=== PATIENT | female | born 1945 | race Caucasian/White ===

== ENCOUNTER 2020-04-11 09:23 | Outpatient (CLI) | payer MEDICARE, SELFPAY ==
--- NOTE | ~2020-04-11 | DEXA_ITS ---
Bone Density Report Name: Elizabeth Mclaughlin Age: 74 Sex: Female Ethnicity: White Date of : 1945 Indication: postmenopausal; hysterectomy; Referring Provider: Jethro Trinidad Study: Bone densitometry was performed. Exam Date: April 11, 2020 Accession number: [id number] Bone Density: Region BMD T-score Z-score Classification AP Spine (L1-L4) 0.814 -2.1 0.2 Osteopenia Femoral Neck (Left) 0.635 -1.9 0.1 Osteopenia Total Hip (Left) 0.773 -1.4 0.3 Osteopenia Total Hip Bilateral Avg 0.771 -1.4 0.3 Osteopenia Femoral Neck (Right) 0.648 -1.8 0.2 Osteopenia Total Hip (Right) 0.767 -1.4 0.3 Osteopenia World Health Organization criteria for BMD impression classify patients as: Normal (T-score at or above -1.0), Osteopenia (T-score between -1.0 and -2.5), or Osteoporosis (T-score at or below -2.5). 10-year Fracture Risk(1): Major Osteoporotic Fracture 12% Hip Fracture 2.8% Reported Risk Factors: [place] (), Neck BMD=0.635, BMI=24.5 (1) FRAX(R) Version 3.08. Fracture probability calculated for an untreated patient. Fracture probability may be lower if the patient has received treatment. Clinical Information Provided by Patient: Has used the following medications: Calcium Has the following medical conditions: Hysterectomy Patient maximum height was 62 Menopause Age: 39 Drinks caffeinated beverages Onset of menses at age 13 Number of children 3 Impression: The patient has low bone mass, based on the Total Spine T-score. The patient has an estimated ten-year risk of hip fracture of 2.8% and an estimated ten-year risk of major fracture of 12%, based on the WHO FRAX algorithm. Discussion: BONE DENSITY IS LOW AT ONE OR MORE SKELETAL SITES. This patient's lowest T-score is low at one or more skeletal sites. It meets the World Health Organization's (WHO) criteria for ?low bone mass? (T-score between -1.0 and -2.5). The patient's 10-year risk of fracture as calculated by FRAX is less than the threshold where pharmacological therapy is recommended by the National Osteoporosis Foundation (NOF). However, all treatment decisions require clinical judgment and consideration of individual patient factors, including patient preferences, comorbidities, previous drug use, risk factors not captured in the FRAX model (e.g., frailty, falls, vitamin D deficiency, increased bone turnover, interval significant decline in bone density) and possible under or overestimation of fracture risk by FRAX. The patient should follow a healthful lifestyle (good nutrition with adequate calcium and vitamin D, and appropriate weight-bearing exercise). Follow-Up: Consider repeating this study in 2 to 3 years to reassess this patient's status, or sooner if there is some new clinical indication. Reported by: [facility] on 04/11/2020 9:50
--- NOTE | ~2020-04-11 | MM_ITS ---
EXAMINATION: MM screening [facility] BI w ayaan HISTORY: Screening mammogram TECHNIQUE: Craniocaudal and mediolateral oblique 3-D tomosynthesis images were obtained and synthetic 2-D images were generated. CAD analysis was submitted and interpreted. COMPARISON: 03/12/2019, 03/05/2017, 02/17/2016 BREAST PARENCHYMAL COMPOSITION: There are scattered areas of fibroglandular density. FINDINGS: Stable bilateral breast masses are again noted, considered benign given the lack of interva l change. There is no evidence of suspicious mass, calcification, or architectural distortion to sugg est malignancy in either breast. There has been no suspicious interval change. IMPRESSION: 1. No mammographic evidence of malignancy. 2. Recommend routine screening mammography in one year. BI-RADS Category 2: Benign finding(s). Reviewed, dictated and finalized at location A.
== END 2020-04-11 09:24 | disposition home or self-care (01) ==
PROVIDERS: PCP Family Medicine; Visit Provider Physician Assistant
DX: Z12.31 Encounter for screening mammogram for malignant neoplasm of breast (principal); Z13.820 Encounter for screening for osteoporosis; Z78.0 Asymptomatic menopausal state; M85.88 Other specified disorders of bone density and structure, other site; M85.852 Other specified disorders of bone density and structure, left thigh; M85.851 Other specified disorders of bone density and structure, right thigh
CPT/HCPCS: 77063; 77067; 77080

== ENCOUNTER 2020-05-07 01:00 | Outpatient (CLI) | payer MEDICARE, SELFPAY ==
[2020-05-07 18:05] LABS: SARS-CoV-2 RNA PCR Negative
== END 2020-05-07 01:01 | disposition home or self-care (01) ==
LOC: ANHCOVIDDT 01:00
PROVIDERS: PCP Family Medicine; Visit Provider Internal Medicine Gastroenterology
DX: Z20.828 Contact with and (suspected) exposure to other viral communicable diseases (principal); Z01.812 Encounter for preprocedural laboratory examination
CPT/HCPCS: 87635; C9803; U0003

== ENCOUNTER 2020-05-10 00:04 | Day surgery (SDC) | payer MEDICARE, SELFPAY ==
[2020-05-04 11:58] VITALS: BMI 25.8
[2020-05-10 06:55] VITALS: BP 118/73; PULSE 85; RESP 16; TEMP 36.1; O2SAT 100; BMI 25.3
[2020-05-10] MEDS: LACTATED RINGERS 1,000 ML 150 ML IV CONT (07:08)
--- NOTE | 2020-05-10 07:48 | WPDANESEPPF ---
Anes - Initial Pre Proc Eval Procedure: Operation Date: 05/10/20 08:15 Proposed Procedures p Screening Colonoscopy - Alex Shultz MD Date/Time: 05/10/20 07:48 Surgeon: Alex Shultz MD Pre Op Diagnosis: Neoplasm Screening Patient Data Age: 74 Gender: F Height: 5 ft 1 in Weight: 60.9 kg Last Vital Signs Temp 97.0 F L 05/10/20 06:55 Pulse 85 05/10/20 06:55 Resp 16 05/10/20 06:55 BP 118/73 05/10/20 06:55 Pulse Ox 100 05/10/20 06:55 Allergies Allergy/AdvReac Type Severity Reaction Status Date / Time No Known Allergies Allergy Verified 05/10/20 06:53 Home Medications Medication Instructions Recorded Confirmed Type multivit,Ca,lnv-kunr-SW-guarana-caff 1 tablet PO DAILY 03/15/20 05/04/20 History 18 mg iron-400 mcg-180 mg tablet peg 3350-electrolytes 236 240 ml PO Q10M #4000 ml 03/22/20 Rx gram-22.74 gram-6.74 gram-5.86 gram solution calcium citrate 600 mg PO DAILY 05/04/20 05/04/20 History cholecalciferol (vitamin D3) 1,000 unit PO DAILY 05/04/20 05/04/20 History [Vitamin D3] mecobalamin (vitamin B12) 1,000 mcg PO DAILY 05/04/20 05/04/20 History psyllium husk [Metamucil] 1 g PO DAILY 05/04/20 05/04/20 History Patient hx anesthesia problems: none Family hx anesthesia problems: none PMFSH Past Medical History Medical History (Updated 05/10/20 @ 07:49 by Perez Simon MD) BMI 25.0-25.9,adult Breast cancer screening Bronchitis last episode 07/2019 Cervical spondylosis Colon cancer screening Screening for osteoporosis Torn tendon Surgical History Surgical History History of hysterectomy History of neck surgery Family History Family History Sibling Family history of lung cancer Mother Family history of dementia Social History Social History Smoking status: Never smoker Second hand tobacco smoke exposure: No Alcohol intake: current Drinks per week: 2 Alcohol use details: WINE Substance use: never Substance use type: does not use Living arrangements: other Additional living arrangements comments: Boyfriend. Gender identity (if verbalized by the patient): Female Spiritual care concerns: No Anes - Eval Final PreProcedure Day of Procedure 05/10/20 07:48 Patient weight: overweight Heart: regular rate and rhythm Lungs: clear to auscultation Airway: Mallampati scale class II Neurological: alert and oriented Last oral intake: >/= 8 hours ASA classification: II Emergent: no Anesthetic plan: proceed Anesthesia type and monitoring: general GIVS and standard monitoring Informed Consent: The patient's anesthetic plan and its attendant risks and benefits were discussed with the patient/family/POA. Questions were solicited and answers provided to the satisfaction of the patient/family/POA.
--- NOTE | 2020-05-10 08:07 | PM.HPGS ---
History of Present Illness History of Present Illness Consent: Risks, benefits, and alternatives have been discussed and questions answered. Patient agrees to proceed with procedure. Chief complaint: Neoplasm Screening Narrative: Elizabeth Mclaughlin is a 74 year old female here for first screening colonoscopy, denies active gi issues Review of Systems Constitutional: Constitutional: Denies headache(s) and Denies weakness Eyes: Eyes: Denies blurry vision ENT: Reports Normal hearing present, Denies headache(s) and Denies neck pain Cardiovascular: Cardiovascular: Denies chest pain and Denies dyspnea Respiratory: Respiratory: Denies dyspnea Gastrointestinal: Gastrointestinal: Reports no additional gastrointestinal complaints Genitourinary: Genitourinary: Denies dysuria Musculoskeletal: Musculoskeletal: Denies neck pain Integumentary/Breasts: Skin/Breast: Denies dry skin Neurologic: Reports Normal hearing present, Denies headache(s) and Denies weakness Psychiatric: Psychiatric: Denies anxiety Endocrine: Endocrine: Denies change in body appearance Hematologic/Lymphatic: Hematologic/Lymphatic: Denies easy bleeding Allergic/Immunologic: Allergic/Immunologic: Denies urticaria PMFSH Past Medical History Medical History (Updated 05/10/20 @ 07:49 by Perez Simon MD) BMI 25.0-25.9,adult Breast cancer screening Bronchitis last episode 07/2019 Cervical spondylosis Colon cancer screening Screening for osteoporosis Torn tendon Surgical History Surgical History History of hysterectomy History of neck surgery Family History Family History Sibling Family history of lung cancer Mother Family history of dementia Social History Social History Smoking status: Never smoker Second hand tobacco smoke exposure: No Alcohol intake: current Drinks per week: 2 Alcohol use details: WINE Substance use: never Substance use type: does not use Living arrangements: other Additional living arrangements comments: Boyfriend. Gender identity (if verbalized by the patient): Female Spiritual care concerns: No Meds Home Medications and Allergies Home Medications Medication Instructions Recorded Confirmed Type multivit,Ca,wwe-kbsz-PK-guarana-caff 1 tablet PO DAILY 03/15/20 05/04/20 History 18 mg iron-400 mcg-180 mg tablet peg 3350-electrolytes 236 240 ml PO Q10M #4000 ml 03/22/20 Rx gram-22.74 gram-6.74 gram-5.86 gram solution calcium citrate 600 mg PO DAILY 05/04/20 05/04/20 History cholecalciferol (vitamin D3) 1,000 unit PO DAILY 05/04/20 05/04/20 History [Vitamin D3] mecobalamin (vitamin B12) 1,000 mcg PO DAILY 05/04/20 05/04/20 History psyllium husk [Metamucil] 1 g PO DAILY 05/04/20 05/04/20 History Allergies Allergy/AdvReac Type Severity Reaction Status Date / Time No Known Allergies Allergy Verified 05/10/20 06:53 Vital Signs Vital Signs - 24 hr 05/10/20 06:55 Temperature 97.0 F L Pulse Rate 85 Respiratory Rate 16 Blood Pressure 118/73 Pulse Oximetry 100 Exam Const: General: comfortable and no acute distress HENMT: General nose exam: Normal nares present Eyes: General: appearance normal, both eyes and all related structures Neck: Neck: no JVD Resp: Auscultation: clear to auscultation bilaterally Cardio: Rate: regular rate Rhythm: regular rhythm GI: Inspection: non-distended GI Palp: Yes Soft to palpation Skin: General skin exam: normal color Neuro: General: gait normal Speech: normal speech Extrem: General: normal to inspection Psych: Mental Status: mental status grossly normal Assessment and Plan Assessment and plan (1) Colon cancer screening: Code(s): Z12.11 - Encounter for screening for malignant neoplasm of colon Status: Acute
[2020-05-10 08:27] VITALS: BP 109/50; PULSE 81; RESP 25; O2SAT 98
[2020-05-10 08:37] VITALS: BP 115/65; PULSE 72; RESP 19; O2SAT 100
[2020-05-10 08:47] VITALS: BP 132/74; PULSE 63; RESP 12; O2SAT 100
== END 2020-05-10 09:02 | disposition home or self-care (01) ==
PROVIDERS: PCP Family Medicine; Visit Provider Internal Medicine Gastroenterology
PROC: 0DJD8ZZ Inspection of Lower Intestinal Tract, Via Natural or Artificial Opening Endoscopic (ICD-10-PCS; CPT 45378; principal; 2020-05-10 08:15)
DX: Z12.11 Encounter for screening for malignant neoplasm of colon (principal); D12.2 Benign neoplasm of ascending colon; K64.8 Other hemorrhoids
CPT/HCPCS: 45380; 88305; J2704; J7120

== ENCOUNTER 2020-10-27 10:36 | Outpatient (CLI) | payer MEDICARE, SELFPAY ==
--- NOTE | ~2020-10-27 | XR_ITS ---
EXAMINATION: XR knee LT 3V DATE: 10/27/2020 10:59 INDICATION: Posterior left knee pain. TECHNIQUE: 3 views of left knee were obtained. COMPARISON: Left knee radiographs 11/26/2014 FINDINGS: Bone alignment is normal. No fracture. There is mild osteoarthritis of patellofemoral alexand[place] rtment characterized by tiny marginal osteophytes. No knee joint effusion. IMPRESSION: 1. Mild left knee osteoarthritis. Reviewed, dictated and finalized at location A.
== END 2020-10-27 10:37 | disposition home or self-care (01) ==
LOC: ANHIMG 10:39
PROVIDERS: PCP Internal Medicine; Visit Provider Nurse Practitioner
DX: M17.12 Unilateral primary osteoarthritis, left knee (principal)
CPT/HCPCS: 73562

== ENCOUNTER 2021-04-15 12:53 | Outpatient (CLI) | payer MEDICARE, SELFPAY ==
--- NOTE | ~2021-04-15 | MR_ITS ---
EXAMINATION: MR knee LT wo con DATE: 04/15/2021 14:32 INDICATION: Posterior left knee pain TECHNIQUE: Magnetic resonance imaging (MRI) of the left knee was performed without intravenous contra st. Sequences included coronal PD-weighted FSE, coronal PD-weighted FS FSE, sagittal T2-weighted FSE , sagittal PD-weighted FS FSE and axial PD weighted fat saturated FSE. COMPARISON: Left knee radiographs dated 03/31/2021 FINDINGS: There is mild motion artifact or blurring on the initial and repeated fat saturated axial, sagittal a nd coronal images. Medial compartment: Medial meniscus is normal. There is mild partial thickness chondral cartilage loss with scattered cho ndral fissuring along the medial tibial plateau with tiny focus of subarticular edema at the anterior medial tibial plateau. There is additional mild partial-thickness cartilage loss and scattered chond ral surface irregularity along the weightbearing medial femoral condyle. Lateral compartment: Lateral meniscus is normal. Mild partial-thickness cartilage loss along the posterior weightbearing l ateral femoral condyle. Patellofemoral compartment: Extensive deep chondral ulceration at the patella with regularity to the articular cortex and subarti cular edema at the inferior apical ridge and the superior apical ridge and immediately adjacent porti ons of the medial and lateral facets . Partial-thickness cartilage loss with smooth chondral surface along the inferior and lateral aspects of the lateral trochlea. Deep chondral fissuring with small fo cus of underlying subarticular edema at the inferior margin of the medial trochlea. . Ligaments and tendons: Anterior and posterior cruciate ligaments are normal. The medial collateral ligament and fibular lakes[place] ateral ligament complex are normal. The extensor mechanism is normal. The visualized medial and later al hamstring tendons as well as the iliotibial band are normal. Fluid: Physiologic amount of fluid in the joint space. No loose osteochondral bodies identified. There is a ganglion cyst measuring 3.6 x 1.9 x 1.7 cm extending inferomedially along the popliteus tendon. Osseous/other: Bone alignment is normal. No fracture or pathologic marrow replacing process. IMPRESSION: 1. Tricompartmental osteoarthritis, moderate severity with high-grade chondromalacia in the patellofe moral compartment and mild with low to moderate grade chondromalacia in the medial and lateral compar tments. 2. Moderate-sized ganglion cyst extending inferiorly along the popliteus muscle and tendon. Reviewed, dictated and finalized at location B. IMPRESSION: 1. Tricompartmental osteoarthritis, moderate severity with high-grade chondroma lacia in the patellofemoral compartment and mild with low to moderate grade cho ndromalacia in the medial and lateral compartments. 2. Moderate-sized ganglion cyst extending inferiorly along the popliteus muscle and tendon.
== END 2021-04-15 12:54 | disposition home or self-care (01) ==
LOC: ANHIMG 12:57
PROVIDERS: PCP Internal Medicine; Visit Provider Nurse Practitioner Family
DX: M17.12 Unilateral primary osteoarthritis, left knee (principal); M67.462 Ganglion, left knee
CPT/HCPCS: 73721

== ENCOUNTER 2021-05-04 09:39 | Outpatient (CLI) | payer MEDICARE, SELFPAY ==
[2021-05-04 09:48] LABS: Basophils Absolute Auto 0.1 K/mm3 (0.0-0.1); Basophils Percent Auto 0.9 % (0.2-1.2); Eosinophils Absolute Auto 0.5 K/mm3 (0-0.3); Eosinophils Percent Auto 5.8 % (0-4.4); Hematocrit 45.5 % (37.0-47.0); Hemoglobin 14.5 g/dL (12.0-15.0); Immature Granulocyte Absolute 0.03 K/mm3 (0.00-0.031); Immature Granulocyte Percent A 0.4 % (0-0.5); Lymphocytes Absolute Auto 2.56 K/mm3 (0.9-3.2); Lymphocytes Percent Auto 32.1 % (18.3-44.2); Mean Corpuscular HGB Conc 31.9 g/dl (32-36); Mean Corpuscular Hemoglobin 28.9 pg (26-34); Mean Corpuscular Volume 90.8 fl (80-100); Mean Platelet Volume 9.4 fl (7.4-10.4); Monocytes Absolute Auto 0.7 K/mm3 (0.1-0.6); Monocytes Percent Auto 8.5 % (2.6-8.5); Neutrophils Absolute Auto 4.2 K/mm3 (1.3-6.7); Neutrophils Percent Auto 52.3 % (45.5-73.1); Platelet Count Result 312 k/mm3 (150-375); Red Blood Count 5.01 M/mm3 (4.2-5.4); Red Cell Distribution Width 13.3 % (11.5-14.5)
[2021-05-04 10:00] LABS: Alanine Aminotransferase 19 U/L (4-35); Albumin Level 4.3 g/dL (3.5-5.1); Alkaline Phosphatase 82 U/L (38-126); Anion Gap 6 mmol/L (8-16); Aspartate Amino Transferase 30 U/L (14-36); Bilirubin,Total 0.6 mg/dL (0.2-1.3); Blood Urea Nitrogen 20 mg/dL (7-17); Calcium 9.4 mg/dL (8.4-10.2); Carbon Dioxide 28 mmol/L (22-30); Chloride 105 mmol/L (98-107); Estimated Glomerular Filt Rate 49; Glucose 105 mg/dL (65-110); Sodium 139 mmol/L (137-145)
[2021-05-04 10:47] LABS: Vitamin D 25 Hydroxy 42.7 ng/mL
== END 2021-05-04 09:40 | disposition home or self-care (01) ==
PROVIDERS: Nurse Practitioner; PCP Internal Medicine; Visit Provider Internal Medicine
DX: Z13.228 Encounter for screening for other metabolic disorders (principal); Z13.220 Encounter for screening for lipoid disorders; E55.9 Vitamin D deficiency, unspecified
CPT/HCPCS: 36415; 80053; 82306; 85025

== ENCOUNTER 2021-06-13 10:49 | Outpatient (CLI) | payer MEDICARE, SELFPAY ==
--- NOTE | ~2021-06-13 | MM_ITS ---
EXAMINATION: MM screening [facility] BI w ayaan HISTORY: Screening mammogram TECHNIQUE: Craniocaudal and mediolateral oblique 3-D tomosynthesis images were obtained and synthetic 2-D images were generated. CAD analysis was submitted and interpreted. COMPARISON: 04/03/2020, 03/12/2019, 03/05/2017 bilateral screening mammogram examinations BREAST PARENCHYMAL COMPOSITION: There are scattered areas of fibroglandular density........ FINDINGS: Occasional benign calcifications. There is no evidence of suspicious mass, calcification, o r architectural distortion to suggest malignancy in either breast. There has been no suspicious inter darío change. IMPRESSION: 1. No mammographic evidence of malignancy. 2. Recommend routine screening mammography in one year. BI-RADS Category 2: Benign finding(s). Reviewed, dictated and finalized at location A. ASE SPECIALIST
== END 2021-06-13 10:50 | disposition home or self-care (01) ==
PROVIDERS: PCP Internal Medicine; Visit Provider Nurse Practitioner
DX: Z12.31 Encounter for screening mammogram for malignant neoplasm of breast (principal)
CPT/HCPCS: 77063; 77067

== ENCOUNTER → 2021-12-22 02:31 | Outpatient (CLI) | payer MEDICARE, SELFPAY ==
[2021-12-22 16:50] LABS: SARS-CoV-2 RNA PCR Positive
== END ==
PROVIDERS: PCP Internal Medicine; Visit Provider Nurse Practitioner
DX: U07.1 COVID-19 (principal)
CPT/HCPCS: C9803; U0003; U0005

== ENCOUNTER 2022-03-18 09:34 | Outpatient (CLI) | payer MEDICARE, SELFPAY ==
--- NOTE | ~2022-03-18 | MR_ITS ---
EXAMINATION: MR cervical spine wo con DATE: 03/18/2022 10:46 INDICATION: Neck pain. TECHNIQUE: Magnetic resonance imaging (MRI) of the cervical spine was performed without intravenous c ontrast. Sequences included sagittal T2-weighted FSE, sagittal T2-weighted FS FSE, sagittal T1-weight ed FSE, axial MERGE, and axial T2-weighted FSE. COMPARISON: Cervical spine MRI 02/24/2019, radiographs 02/16/2019 FINDINGS: There is 2 mm anterolisthesis of C4 on C5 and 2 mm retrolisthesis of C5 on C6. There change s of anterior fusion procedure at C6-C7 with healed interbody bone graft. There is chronic mild anter ior wedging of C5 vertebral body. There is severely decreased disc height at C5-C6 with endplate ken deling. The spinal cord signal intensity is normal. The following disc levels are specifically discus sed: C2-C3: The disc does not extend beyond the endplate margin. There is no uncovertebral joint osteoarth ritis. There is severe right and mild left facet joint osteoarthritis. There is no neural foraminal s tenosis. There is no central canal stenosis. C3-C4: The disc does not extend beyond the endplate margin. There is no uncovertebral joint osteoarth ritis. There is mild right and severe left facet joint osteoarthritis. There is mild left neural fora paige stenosis. There is no central canal stenosis. C4-C5: The disc does not extend beyond the endplate margin. There is mild left uncovertebral joint os teoarthritis. There is mild right and severe left facet joint osteoarthritis. There is mild left neur al foraminal stenosis. There is mild central canal stenosis. C5-C6: The disc is bulging. There is severe bilateral uncovertebral joint osteoarthritis. There is se nakul bilateral facet joint osteoarthritis. There is mild bilateral neural foraminal stenosis. There i s moderate central canal stenosis with ventral and dorsal indentation of the spinal cord. C6-C7: There is no uncovertebral joint hypertrophy. There is moderate right and mild left facet joint osteoarthritis. There is mild right neural foraminal stenosis. There is no central canal stenosis. C7-T1: The disc does not extend beyond the endplate margin. There is no uncovertebral joint osteoarth ritis. There is mild right and severe left facet joint osteoarthritis. There is mild left neural fora paige stenosis. There is no central canal stenosis. IMPRESSION: 1. Severe cervical spondylosis, stable from 02/24/2019. 2. Anterior fusion at C6-C7. Reviewed, dictated and finalized at location A.
== END 2022-03-18 09:35 | disposition home or self-care (01) ==
PROVIDERS: PCP Internal Medicine; Visit Provider Nurse Practitioner
DX: M47.22 Other spondylosis with radiculopathy, cervical region (principal); Z98.1 Arthrodesis status
CPT/HCPCS: 72141

== ENCOUNTER 2022-08-27 12:55 | Outpatient (CLI) | payer MEDICARE, SELFPAY ==
--- NOTE | 2022-08-27 13:24 | ECG_ITS ---
Measurements Intervals [place] Rate: 69 P: 28 NH: 172 QRS: 20 QRSD: 78 T: 51 QT: 386 QTc: 414 Interpretive Statements SINUS RHYTHM NO PREVIOUS ECG AVAILABLE FOR COMPARISON Electronically Signed On 08-28-2022 11:22:44 QUALITY PROJECT MANAGER by Azul Youssef M.D.
[2022-08-27 13:34] LABS: Hematocrit 43.4 % (37.0-47.0); Hemoglobin 14.1 g/dL (12.0-15.0); Mean Corpuscular HGB Conc 32.5 g/dl (32-36); Mean Corpuscular Hemoglobin 29.3 pg (26-34); Mean Platelet Volume 9.7 fl (7.4-10.4); Platelet Count Result 402 k/mm3 (150-375); Red Blood Count 4.82 M/mm3 (4.2-5.4); Red Cell Distribution Width 14.2 % (11.5-14.5); White Blood Count 12.1 K/mm3 (4.5-10.0)
[2022-08-27 13:35] LABS: Appearance Urine Cloudy (Clear); Bilirubin Urine Negative (Negative); Blood Urine Trace-intact (Negative); Color Urine Yellow (Yellow); Glucose Urine UA Negative (Negative); Ketones Urine Negative (Negative); Leukocyte Esterase Ur 1+ LEU/UL (NEGATIVE); Nitrate Urine Positive (Negative); Protein Urine Negative (Negative); Urobilinogen Urine 0.2 mg/dL (<2.0)
[2022-08-27 13:44] LABS: Bacteria Urine Trace /hpf; Mucus Urine Rare /lpf; Squamous Epithelial Cell Urine Occasional /hpf (Few); WBC Urine 16-20 /hpf (0-3)
[2022-08-27 13:46] LABS: Anion Gap 6 mmol/L (8-16); Blood Urea Nitrogen 23 mg/dL (7-17); Calcium 9.2 mg/dL (8.4-10.2); Carbon Dioxide 27 mmol/L (22-30); Chloride 105 mmol/L (98-107); Estimated Glomerular Filt Rate 48; Glucose 106 mg/dL (65-110); INR 1.1; Potassium 4.4 mmol/L (3.4-5.0); Prothrombin Time 13.5 Seconds (11.1-14.7); Sodium 138 mmol/L (137-145)
[2022-08-27 13:47] LABS: Partial Thromboplastin Time 31.7 SECONDS (22.3-36.8)
[2022-08-27 13:49] LABS: Add Urine Microscopic? YES
== END 2022-08-27 12:56 | disposition home or self-care (01) ==
LOC: ANHLAB 12:56
PROVIDERS: PCP Internal Medicine; Visit Provider Neurological Surgery
DX: Z01.818 Encounter for other preprocedural examination (principal); Z79.01 Long term (current) use of anticoagulants
CPT/HCPCS: 36415; 80048; 81001; 85027; 85610; 85730; 86850; 86900; 86901; 93005

== ENCOUNTER 2022-09-05 12:27 | Outpatient (CLI) | payer MEDICARE, SELFPAY | END 2022-09-05 12:28 | disposition home or self-care (01) | PROVIDERS: PCP Nurse Practitioner; Visit Provider Neurological Surgery | DX: M48.02 Spinal stenosis, cervical region (principal); Z01.818 Encounter for other preprocedural examination | CPT/HCPCS: 36415; 86850; 86900; 86901 ==

== ENCOUNTER 2022-09-11 15:56 | Inpatient (IN) | payer MEDICARE, SELFPAY ==
[2022-09-04 09:18] VITALS: BMI 25.0
--- NOTE | 2022-09-04 09:45 | PC.NURSE ---
Report to the Outpatient Waiting Room, entrance under the green pavilion located off [facility], at time __8:30AM on date __09/11/22 . Planned Procedure Time: __10:30AM . Time changes happen often and if your time is changed the preop area will call you the afternoon before. - You and your visitor will be asked to self-screen and do not enter if you have any COVID symptoms. - Only one visitor is requested with a max of two and NO children visitors are allowed at this time. - The patient visitor may be requested to leave or wait in car when not with patient due to distancing restrictions. - A mask is optional within the hospital at this time. Patients may have clear liquids (water, carbonated beverages, clear teas, apple juice) until 3 hours prior to surgery with a maximum of 20 ounces. - No food from midnight until time of surgery Take the following medications with a SIP of water the morning of surgery: ____NONE DO NOT STOP ANY OF YOUR OTHER PRESCRIPTION MEDICATIONS PRIOR TO SURGERY ?EXCEPT THE FOLLOWING Medications to discontinue per physician ____HOLD ALL VITAMINS/SUPPLEMENTS 7 DAYS PRE-OP PER DR BLAKE(PER PATIENT) Date to take last dose___09/04/22 Please no make-up, nail sinhala, hairspray, perfume, deodorant, or body powder the day of surgery. No jewelry (including any body piercings) or valuables the day of surgery, leave them at home. Please take a shower or bath the night before, or the morning of, surgery with an antibacterial soap. Wear comfortable, loose fitting clothing. Children are encouraged to wear pajamas. - Jewelry must be removed prior to entering the operating room. Rings and piercings that are not removed may be cut off. - The hospital will not accept responsibility for valuables. - Please leave all valuables, including medications, at home the day of surgery. If you are going home after surgery, a licensed p d driver must drive you home. - NO public transportation without another adult if you receive anesthesia. - We recommend that an adult stay with you for 24 hours following discharge. - We also recommend that you do not drive, make important decision, drink alcoholic beverages, or take any drugs that were not prescribed by your health care provider for at least 24 hours after your discharge time. Follow any additional instructions given to you from your surgeon. If you or anyone in your household have experienced Covid symptoms in the past week, please notify your surgeon or the nurse liaison at the phone number below for possible testing. Telephone instructions given to __PATIENT_and asked if any additional questions and then verbalized understanding. Patient advised to call surgeon office or pre surgery nurse liaison [phone] if any additional questions.
--- NOTE | 2022-09-10 09:17 | WPDANESEPPF ---
Anes - Initial Pre Proc Eval Procedure: Operation Date: 09/11/22 07:30 Proposed Procedures p Posterior Cervical Decompression C3-4, C6-7 with Fusion - Deepika Butt MD Date/Time: 09/10/22 09:17 Surgeon: Deepika Butt MD Pre Op Diagnosis: cervical stenosis Patient Data Age: 76 Gender: F Height: 1.57 m Weight: 62 kg Allergies Allergy/AdvReac Type Severity Reaction Status Date / Time No Known Allergies Allergy Verified 09/11/22 07:22 Home Medications Medication Instructions Recorded Confirmed Type multivit,Ca,sna-cqnm-HL-guarana-caff 1 tablet PO DAILY 03/15/20 09/11/22 History 18 mg iron-400 mcg-180 mg tablet (One-A-Day Women's Active) cholecalciferol (vitamin D3) 25 1,000 unit PO DAILY 05/04/20 09/11/22 History mcg (1,000 unit) tablet (Vitamin D3) ferrous sulfate 325 mg (65 mg 325 mg PO DAILY 08/08/22 09/11/22 History iron) tablet acetaminophen 500 mg tablet 500 mg PO Q6H PRN Pain 09/04/22 09/04/22 History calcium carbonate 600 mg calcium 600 mg PO DAILY 09/04/22 09/11/22 History (1,500 mg) tablet Patient hx anesthesia problems: none Family hx anesthesia problems: none Results Review: All pre-operative results and documents have been reviewed as part of the pre-operative evaluation. [facility] Past Medical History Medical History (Updated 08/27/22 @ 12:54 by Nandini Viramontes MA) BMI 25.0-25.9,adult Breast cancer screening Bronchitis last episode 07/2019 Cervical radiculopathy Cervical spondylosis CKD (chronic kidney disease) Colon cancer screening Ganglion cyst Lateral meniscus tear Left knee DJD Light headedness Screening for osteoporosis SOB (shortness of breath) Torn tendon Urinary frequency Weight gain Surgical History Surgical History History of foot surgery History of hysterectomy History of neck surgery Family History Family History Sibling Family history of lung cancer Thyroid disorder Mother Family history of dementia Heart disease Father Cerebrovascular accident Thyroid disorder Son Diabetes mellitus Depression Daughter Diabetes mellitus Heart disease Renal failure Dialysis patient Social History Social History (Updated 08/08/22 @ 09:49 by Monique Sánchez [facility]) Social History: caffeine-soda, 3 cups daily Smoking status: Never smoker Second hand tobacco smoke exposure: No Alcohol intake: current Drinks per week: 2 Alcohol use details: WINE Substance use: never Substance use type: does not use Lack of Transportation: No Lack of Food: Never True Current Housing: I Have Housing Concerned About Future Housing: No Difficulty Paying Gas/Electric Bills: No Difficulty Paying for Meds: No Currently Unemployed: No Education: High School Diploma/GED Difficulty w/ Childcare or Family Care: No Living arrangements: with family Additional living arrangements comments: S.O. Occupation/Education: retired Gender identity (if verbalized by the patient): Female Sexual Orientation (if Verbalized by the Patient): Straight or Heterosexual Spiritual care concerns: No Anes - Eval Final PreProcedure Day of Procedure 09/10/22 09:17 Patient weight: normal Heart: regular rate and rhythm Lungs: clear to auscultation Airway: Mallampati scale class III Neurological: alert and oriented Last oral intake: >/= 8 hours ASA classification: III Emergent: no Anesthetic plan: proceed Anesthesia type and monitoring: general ETT and standard monitoring Results Review: All pre-operative results and documents have been reviewed as part of the pre-operative evaluation. Informed Consent: The patient's anesthetic plan and its attendant risks and benefits were discussed with the patient/family/POA. Questions were solicited and answers provided to the satisfaction of the patient/family/POA
[2022-09-11] VITALS (15 sets, daily range): BP systolic 101–166; BP diastolic 48–94; PULSE 66–84; RESP 14–20; TEMP 36.1–36.7; O2SAT 85–100
--- NOTE | ~2022-09-11 | XR_ITS ---
EXAMINATION: XR fluoroscopy no charge DATE: 09/11/2022 12:30 APPRAISAL TECHNICIAN INDICATION: CERVICAL FUSION . TECHNIQUE: 5 fluoroscopic images of the lateral cervical spine were obtained during cervical fusion p erformed by the surgeon. I was not present in the operating room. Fluoroscopy exposure time was 10.7 seconds. Air Kerma 0.4626 mGy. DAP 0.0092 mGym2. COMPARISON: MR cervical spine 03/18/2022. FINDINGS: A surgical instrument localizes the space between the second and third spinous processes, followed by the spinous process of C7. Soft tissue retractors overlying the posterior soft tissues in the remain ing images. Posterior fusion hardware placement spanning C3-C6. IMPRESSION: Fluoroscopic documentation of cervical fusion. Please refer to the operative note for complete proced ural details . Reviewed, dictated and finalized at location K. AISAL TECHNICIAN IMPRESSION: Fluoroscopic documentation of cervical fusion. Please refer to the operative no te for complete procedural details .
[2022-09-11 07:49] LABS: Appearance Urine Clear (Clear); Bilirubin Urine Negative (Negative); Blood Urine Trace-lysed (Negative); Color Urine Yellow (Yellow); Glucose Urine UA Negative (Negative); Ketones Urine Negative (Negative); Leukocyte Esterase Ur Trace LEU/UL (Negative); Nitrate Urine Positive (Negative); Protein Urine Negative (Negative); Urobilinogen Urine 0.2 mg/dL (<2.0); pH Urine 6.5 (5.0-9.0)
[2022-09-11 07:53] LABS: Bacteria Urine Trace /hpf; Mucus Urine Rare /lpf; Squamous Epithelial Cell Urine Rare /hpf (Few); WBC Urine 0-3 /hpf
[2022-09-11 07:56] LABS: Add Urine Microscopic? YES
--- NOTE | 2022-09-11 09:23 | PM.IMHP ---
H&P: HPI History of Present Illness Date/Time: 09/11/22 09:23 Chief Complaint: Elizabeth Mclaughlin is a very pleasant 76 year old female who originally presented at the request of her primary care physician and was seen in April 2022. She notes a history of a prior anterior cervical spine operation 10-15 years ago.? She is not sure as to who performed the operation.? Based upon imaging it appears that she had a non-instrumented ACDF at C6-7.? Elizabeth has had symptoms for 4-5 years.? Approximately 3-4 years ago she describes pain primarily in the neck with occasional radiation to the upper extremities.? She saw a surgeon at that time who did not recommend surgical intervention.? I do not have records from imaging at that time.? Elizabeth reports that she participated in physical therapy and had an injection.? She thinks that it was with IPC.?? She states that she had 1-2 years of relief of her symptoms after the injection.? ? At the time of our initial visit, she had not recently seen pain management.? She had not recently participated in physical therapy. At our initial visit, Elizabeth noted that since January of 2022 she? had pain in both her neck and her upper extremities.? She described pain in the region of the biceps bilaterally that radiated to the forearms and hand.? She denied sensory change.? She denied focal motor weakness.? She did describe, however, pain with movement of her upper extremities.? She denied lower extremity symptoms.? She denied difficulties with balance or dexterity.? She denies bowel or bladder symptoms.? She has undergone MR imaging of the cervical spine performed at [facility] on March 18, 2022.? This does show changes from a prior noninstrumented anterior cervical fusion at C6-7.? There are multilevel spondylotic changes.? At the C5-6 level there is a slight retrolisthesis of C5 on C6.? There is a disc bulge that contributes to moderate central stenosis.? There is a fair amount of motion artifact on the sequence.? at the C4-5 level, there is also moderate central stenosis and moderate to severe neuroforaminal There is not suggestion of spinal cord signal change.? ? The radiology reports comments that there is not significant change in comparison with 2019 In June, the patient returned after having had injections, completed by Dr Sargent. She reported that she? obtained good relief of her axial neck pain, however remained with her pain to her BUE's.? She stated that she was able to rotate her neck, with only experiencing a tight sensation to her left neck with right neck rotation.? She was attending sessions of physial therapy and felt that she had obtained good relief and improvement of her ROM.? Elizabeth underwent another injection with Dr Sargent on 07/04/2022,? that she states helps with her symptoms in her BUE's? for approximately 1 week, but the symptoms have returned.? She denies significant met neck pain but notes radiation of pain to her shoulders, biceps, and hands.? She is increasingly frustrated by this pain and is inclined to consider surgery. She continues to deny bowel or bladder incontinence, changes in her gait or problems with dexterity PMFSH Past Medical History Medical History (Updated 08/27/22 @ 12:54 by Nandini Viramontes MA) BMI 25.0-25.9,adult Breast cancer screening Bronchitis last episode 07/2019 Cervical radiculopathy Cervical spondylosis CKD (chronic kidney disease) Colon cancer screening Ganglion cyst Lateral meniscus tear Left knee DJD Light headedness Screening for osteoporosis SOB (shortness of breath) Torn tendon Urinary frequency Weight gain Surgical History Surgical History History of foot surgery History of hysterectomy History of neck surgery Family History Family History Sibling Family history of lung cancer Thyroid disorder Mother Family history of dementia Heart disease Father Cereb
--- NOTE | 2022-09-11 09:25 | WPDHPUPDATE1 ---
History and Physical Update Update Date/Time: 09/11/22 09:25 History and Physical has been reviewed, including an updated exam of the patient. There are NO changes in the patient's condition. Risks, benefits, and alternatives have been discussed and questions answered. Patient agrees to proceed with procedure. Plan is for posterior cervical decompression and fusion
[2022-09-11] MEDS: LACTATED RINGERS 1,000 ML 30 ML IV CONT ×2 (09:30→14:08)
[2022-09-11] MEDS: ceFAZolin 2 GM/D5W 50 ML 2 GM/50 ML BAG IVPB (11:44)
[2022-09-11] MEDS: LIDO 1%/EPINEPHRINE 1:100,000 20 ML VIAL 10 ML INFILTRATE (13:29)
[2022-09-11] MEDS: VANCOMYCIN HCL 1,000 MG VIAL 1000 MG TOPICAL (13:30)
--- NOTE | 2022-09-11 13:39 | W.PM.PROC2 ---
Procedure Note - Detailed Date of Procedure 09/11/22 Pre-op Diagnosis cervical stenosis Post-op Diagnosis Same Procedure Performed Posterior cervical decompression and fusion C3-4 through C6-7 Surgeon Deepika Butt MD Anesthesia General Indications Elizabeth Mclaughlin is a very pleasant 76-year-old mwybm-[id number]-whtzhpot female who? originally presented with neck and bilateral upper extremity symptoms in the setting of cervical stenosis adjacent to a prior non instrumented cervical fusion.? Elizabeth has participated in physical therapy and has had 2 epidural steroid injections with Dr. Sargent.? She initially had significant improvement in her neck pain as well as her upper extremity symptoms with epidural steroid injections.? At this visit, however, her pain has returned.? Nearly any activity with her upper extremities result in significant upper extremity pain.? She is increasingly frustrated by her symptoms.? On review of her MRI she does have at least moderate stenosis adjacent to her prior fusion at C4-5 and C5-6.? There is also dorsal ligamentous hypertrophy that extends from C4 through C7.? There is multilevel neuroforaminal narrowing.? All of these findings could certainly be contributing to the patient's symptoms. The patient I have had an extended discussion in the office regarding the options for management of her symptoms and radiographic findings.? We have discussed the option of continued physical therapy or repeated interject interventional measures including epidural steroid injection.? As the patient only saw approximately 1 week of relief with her most recent injection, we have discussed that the likely that the repeated attempts would offer lasting result leaf is small.? The patient is more inclined to consider surgery Finally, we have thus? discussed the option of surgery. In the absence of functional deficits, I have explained that my preference is to exhaust non surgical options prior to consideration of surgery. However, we have discussed that as she has been unable to obtain durable relief of symptoms with non surgical measures that it would be very reasonable to consider surgical intervention.? we have generally discussed both the anterior and posterior approaches to the cervical spine.? Given the patient's prior anterior operation as well as the finding of dorsal ligamentous hypertrophy, I have explained that I would tend to favor a posterior approach in this situation.? I have explained that surgery would entail a ? Posterior cervical decompression and instrumented posterolateral fusion from C3-4 through C6-7. I have explained the indications for surgery as well as the risks, including but not limited to bleeding, infection, CSF leak, numbness, weakness, paralysis, stroke, coma, even . We have discussed the risk of pseudarthrosis, hardware failure, adjacent level disease, and even the need for further surgery. We have discussed the fundamentals of the surgical procedure and the typical recovery from surgery. She indicates understanding and asks us to proceed Description of Procedure The patient was brought into the operating room where general anesthesia was induced without complications.? A neutral position was used due to cervical stenosis.? Appropriate monitoring and access was achieved.? SSEP and MEP monitoring was obtained. the patient was turned into a prone position on the operating table.? The head was secured in a Dorantes skull clamp.? All extremities were padded? The dorantes clamp was secured to the table with the patient in a position. The C3-4 level was confirmed and identified using fluoroscopy.? The incision was planned and the site was prepped and draped sterilely.? A time out was performed. A linear incision was made using a #10 blade scalpel.? Dissection was carried down to the spinous process and the paraspinal muscle was dissected off of the lamina of C3, C4, C5, C6 and C7 using electrocautery.? Self retaining retractors w
[2022-09-11] MEDS: fentaNYL CITRATE INJ (*CRX) 100 MCG/2 ML VIAL 25 MCG IV PUSH ×7 (14:43→15:44)
[2022-09-11] MEDS: HYDROcodone/acetaminophen (*CRX) 10-325 MG TABLET 1 TAB PO ×2 (16:23→20:35)
--- NOTE | 2022-09-11 16:26 | ADMGEN ---
This patient, Elizabeth Mclaughlin, was admitted to Medical Room 241-01. Patient/family oriented to hospital policies and general routines including ID bracelet, bed and alarms, visiting hours, pain management, procedures, bathroom and other care routines, personal items, smoking policy, room service/diet, and visiting hours. Information on how to activate the Rapid Response Team has been discussed. Patient/Family are encouraged to report perceived risks to care and to ask questions if they do not understand what they are told or what they should do.
[2022-09-11] MEDS: KCL 20MEQ/0.9% SOD CHL 1,000 ML 100 ML IV CONT (18:06)
[2022-09-11] MEDS: CYCLOBENZAPRINE HCL 10 MG TABLET PO (22:45)
[2022-09-12 02:45] VITALS: BP 148/72; PULSE 76; RESP 21; TEMP 36.2; O2SAT 100
[2022-09-12 06:00] VITALS: BP 146/61; PULSE 84; RESP 18; TEMP 36.3; O2SAT 97
[2022-09-12] MEDS: HYDROcodone/acetaminophen (*CRX) 10-325 MG TABLET 1 TAB PO ×3 (06:09→20:45)
[2022-09-12 09:06] VITALS: RESP 18; O2SAT 98
[2022-09-12] MEDS: DOCUSATE SODIUM 100 MG CAPSULE PO ×2 (09:06→20:45)
[2022-09-12 11:35] VITALS: BP 133/63; PULSE 86; RESP 16; TEMP 36.6; O2SAT 100
--- NOTE | 2022-09-12 12:40 | WPDNEUROSGPN ---
Progress Note: A&P Assessment and Plan (1) Cervical stenosis of spinal canal: Code(s): M48.02 - Spinal stenosis, cervical region Status: Acute Assessment and Plan: Doing well on POD #1 Continue PT/OT evaluation and treatment Hemovac to be pulled today Continue with monitoring of pain C-Collar to remain in place Possible discharge to home tomorrow Subjective Date/time seen: 09/12/22 12:00 Interval history: POD #1 Pt doing well, pain controlled with oral meds [id number]. C-Collar remains in place PT and OT working with patient No pain to KAY's Review of Systems Review of Systems: All systems reviewed & are unremarkable except as noted in HPI and below Exam Narrative: General Examination: GENERAL: The patient is well-developed and well-nourished, in no acute distress. Neurologic Exam: MENTAL STATUS: The patient was alert and oriented to person, place, and time. The patient demonstrates very good cognitive function. MOTOR EXAM: Upper extremities are 5/5 with normal muscle power bulk and tone. SENSATION: Light touch sensation was normal. CRANIAL NERVES: Pupils are equal, round. Face is symmetric. Hearing is intact bilaterally. Shoulder shrug is intact bilaterally Objective Data Vital Signs Vital Signs: Vital Signs - 24 hr 09/11/22 14:08 09/11/22 14:20 09/11/22 14:35 Temperature 36.4 C Pulse Rate 74 68 69 Respiratory Rate 17 20 20 Blood Pressure 118/51 L 101/48 L 118/57 L Pulse Oximetry 99 99 100 Oxygen Delivery Simple Face Mask Simple Face Mask Simple Face Mask Oxygen Flow Rate 6 6 6 09/11/22 14:50 09/11/22 15:05 09/11/22 15:10 Temperature Pulse Rate 66 72 Respiratory Rate 16 20 Blood Pressure 125/77 141/79 H Pulse Oximetry 100 100 Oxygen Delivery Simple Face Mask Simple Face Mask Room Air Oxygen Flow Rate 6 6 09/11/22 15:14 09/11/22 15:20 09/11/22 15:35 Temperature Pulse Rate 82 77 Respiratory Rate 20 20 Blood Pressure 142/87 H 118/94 H Pulse Oximetry 85 L 100 100 Oxygen Delivery Nasal Cannula Nasal Cannula Nasal Cannula Oxygen Flow Rate 2 2 2 09/11/22 15:50 09/11/22 16:05 09/11/22 16:20 Temperature 36.1 C L 36.2 C L 36.3 C L Pulse Rate 84 67 81 Respiratory Rate 20 14 16 Blood Pressure 146/75 H 152/63 H 160/75 H Pulse Oximetry 100 100 100 Oxygen Delivery Nasal Cannula Oxygen Flow Rate 2 09/11/22 16:50 09/11/22 18:10 09/11/22 22:28 Temperature 36.7 C 36.4 C 36.2 C L Pulse Rate 81 82 79 Respiratory Rate 14 14 20 Blood Pressure 166/71 H 161/72 H 150/78 H Pulse Oximetry 97 98 98 Oxygen Delivery Oxygen Flow Rate 09/12/22 02:45 09/12/22 06:00 09/12/22 08:11 Temperature 36.2 C L 36.3 C L Pulse Rate 76 84 Respiratory Rate 21 H 18 Blood Pressure 148/72 H 146/61 H Pulse Oximetry 100 97 Oxygen Delivery Room Air Oxygen Flow Rate 09/12/22 08:57 09/12/22 09:06 09/12/22 11:35 Temperature 36.6 C Pulse Rate 86 Respiratory Rate 18 16 Blood Pressure 133/63 Pulse Oximetry 98 100 Oxygen Delivery Room Air Room Air Oxygen Flow Rate Intake/Output Intake/Output: Intake & Output 09/09/22 09/10/22 09/11/22 09/12/22 23:59 23:59 23:59 23:59 Intake Total 2340 1350 Output Total 165 100 Balance 2175 1250 Meds/Results Medications: Active Medications Generic Name Dose Route Start Last Admin Trade Name Freq PRN Reason Stop Dose Admin Hydrocodone Bitart/Acetaminophen 1 tab 09/11/22 15:56 Hydrocodone/Acetaminophen (*Crx) 5-325 Mg Tablet PO Q4H PRN Mild Pain (1-3) Hydrocodone Bitart/Acetaminophen 1 tab 09/11/22 15:56 09/12/22 10:39 Hydrocodone/Acetaminophen (*Crx) 10-325 Mg Tablet PO 1 tab Q4H PRN Administration Moderate Pain (4-6) Al Hydrox/Mg Hydrox/Simethicone 20 ml 09/11/22 15:56 Mag Hydrox/Al Hydrox/Simeth 30 Ml Udc PO Q4H PRN Indigestion/Heartburn Bisacodyl 10 mg 09/11/22 15:56 Bisacodyl 10 Mg Suppository RECTAL DAILY PRN Consti
--- NOTE | 2022-09-12 14:10 | WPDANESPN ---
Anes - Prog Note Post-Op Date/Time: 09/12/22 14:10 Cardiovascular status: normal Respiratory status: normal Airway patency: baseline Mental status: baseline Post-Op hydration status: normal Vital Signs: Last Vital Signs Temp 36.6 C 09/12/22 11:35 Pulse 86 09/12/22 11:35 Resp 16 09/12/22 11:35 BP 133/63 09/12/22 11:35 Pulse Ox 100 09/12/22 11:35 O2 Del Method Room Air 09/12/22 09:06 O2 Flow Rate 2 09/11/22 15:50 Pain Score (VAS): 09/21 I/O: Intake & Output 09/11/22 09/12/22 09/12/22 23:59 07:59 15:59 Intake Total 390 1050 300 Output Total 150 100 Balance 240 950 300 Post-procedural complaints: none Patient Feedback: Patient satisfied with anesthetic care.
[2022-09-12 16:26] VITALS: BP 144/57; PULSE 87; RESP 16; TEMP 36.5; O2SAT 99
[2022-09-12 19:48] VITALS: BP 152/71; PULSE 94; RESP 16; TEMP 36.4; O2SAT 100
[2022-09-13 00:41] VITALS: BP 154/76; PULSE 90; RESP 14; TEMP 36.4; O2SAT 97
[2022-09-13 04:45] VITALS: BP 146/81; PULSE 94; RESP 18; TEMP 36.9; O2SAT 94
[2022-09-13 09:07] VITALS: RESP 18; O2SAT 94
[2022-09-13] MEDS: HYDROcodone/acetaminophen (*CRX) 10-325 MG TABLET 1 TAB PO ×3 (09:07→17:14)
[2022-09-13] MEDS: DOCUSATE SODIUM 100 MG CAPSULE PO (09:07)
[2022-09-13 14:04] VITALS: BP 132/60; PULSE 92; RESP 14; TEMP 37.1; O2SAT 98
--- NOTE | 2022-09-13 17:11 | WPDNEUROSGPN ---
Progress Note: A&P Assessment and Plan (1) Cervical stenosis of spinal canal: Code(s): M48.02 - Spinal stenosis, cervical region Status: Acute (2) Cervical radiculopathy: Code(s): M54.12 - Radiculopathy, cervical region Status: Acute (3) Status post cervical spinal fusion: Code(s): Z98.1 - Arthrodesis status Status: Acute Plan Plan for discharge home this evening. Patient was instructed to keep a dressing on her incision as long as drainage is present. She was also instructed to notify Dr. Butt's office on Saturday if drainage continues to be an issue. Subjective Date/time seen: 09/13/22 17:11 Interval history: Overall feeling well and has had improvement in her arm pain and function compared to pre-op. Nurses noted some serous drainage from her incision earlier today. Exam Narrative: Awake, alert, oriented Full strength in all extremities Sensation intact to light touch Incision without active drainage, erythema, or edema Objective Data Vital Signs Vital Signs: Vital Signs - 24 hr 09/12/22 19:48 09/12/22 20:30 09/13/22 00:41 Temperature 97.6 F 97.6 F Pulse Rate 94 90 Respiratory Rate 16 14 Blood Pressure 152/71 H 154/76 H Pulse Oximetry 100 97 Oxygen Delivery Room Air 09/13/22 04:45 09/13/22 09:07 09/13/22 14:04 Temperature 98.4 F 98.8 F Pulse Rate 94 92 Respiratory Rate 18 18 14 Blood Pressure 146/81 H 132/60 Pulse Oximetry 94 94 98 Oxygen Delivery Room Air Intake/Output Intake/Output: Intake & Output 09/10/22 09/11/22 09/12/22 09/13/22 23:59 23:59 23:59 23:59 Intake Total 2340 2260 560 Output Total 165 800 600 Balance 2175 1460 -40 Meds/Results Medications: Active Medications Generic Name Dose Route Start Last Admin Trade Name Freq PRN Reason Stop Dose Admin Hydrocodone Bitart/Acetaminophen 1 tab 09/11/22 15:56 Hydrocodone/Acetaminophen (*Crx) 5-325 Mg Tablet PO Q4H PRN Mild Pain (1-3) Hydrocodone Bitart/Acetaminophen 1 tab 09/11/22 15:56 09/13/22 13:06 Hydrocodone/Acetaminophen (*Crx) 10-325 Mg Tablet PO 1 tab Q4H PRN Administration Moderate Pain (4-6) Al Hydrox/Mg Hydrox/Simethicone 20 ml 09/11/22 15:56 Mag Hydrox/Al Hydrox/Simeth 30 Ml Udc PO Q4H PRN Indigestion/Heartburn Bisacodyl 10 mg 09/11/22 15:56 Bisacodyl 10 Mg Suppository RECTAL DAILY PRN Constipation Cyclobenzaprine HCl 10 mg 09/11/22 15:56 09/11/22 22:45 Cyclobenzaprine Hcl 10 Mg Tablet PO 10 mg TID PRN Administration Muscle Spasms Docusate Sodium 100 mg 09/11/22 21:00 09/13/22 09:07 Docusate Sodium 100 Mg Capsule PO 100 mg Q12HR RAFAEL Administration Morphine Sulfate 2 mg 09/11/22 15:56 Morphine Sulfate (*Crx) 2 Mg/Ml Inj IV PUSH Q2H PRN Pain Rated 7-10 Ondansetron HCl 4 mg 09/11/22 15:56 Ondansetron Inj 4 Mg/2 Ml Vial IV PUSH Q8H PRN Nausea And Vomiting Senna/Docusate Sodium 1 tab 09/11/22 15:56 Senna/Docusate Sodium Tablet PO HS PRN Constipation Radiology Results: ITS Impressions Fluoroscopy 09/11/22 14:08 IMPRESSION: Fluoroscopic documentation of cervical fusion. Please refer to the operative note for complete procedural details .
--- NOTE | 2022-10-05 12:46 | PM.DS ---
DS: Admitting Diagnosis Discharge Date 09/13/22 Admitting Diagnosis cervical stenosis DS: Discharge Diagnosis Discharge Diagnosis (1) Cervical stenosis of spinal canal: Code(s): M48.02 - Spinal stenosis, cervical region Status: Acute Assessment and Plan: Patient admitted with cervical stenosis for elective posterior cervical decompression and fusion. Tolerated surgery well and stable for d/c to home on POD#2 DS: Summary Hospital Course Reason for hospitalization: elective cerivcal decompression and fusion Hospital Course: Patient admitted for posterior cervical decomrpession and fusion. Toelrated surgery well without complications. Stable for d/c to home on POD2 Status at Discharge Functional status at discharge: independent ambulation Overall status at discharge: patient is back to baseline Time Spent with Patient Time attestation: Total time spent providing and/or coordinating discharge services: Time spent: Less than 30 minutes Exam Narrative: AAOx3 Speech CF UTE EOMI Face= TML MAEW with good strength Incision CDI Discharge Plan Discharge Attending physician on discharge: Deepika Butt Consulting providers: Jethro Mcwilliams ; Deepika Gabriel ; Shaka,Hortensia Das Discharging Clinician: Deepika Butt Anticipated Discharge Date/Time: 09/13/22 17:53 Patient Disposition: Home, Self-Care Activity: may drive after 2 weeks Diet: as tolerated Wound Care Instructions: incision open to air Discharge Instructions: see printed insructions from office Patient Instructions: Antibiotic Form Stand Alone Forms: General Discharge Information Follow-up/Referrals: Deepika Butt MD [Physician] - (6 weeks) Discharge Medications: New hydrocodone-acetaminophen 5-325 mg tablet 1 tablet PO Q4H PRN (Reason: pain) Qty: 40 0RF Continued One-A-Day Women's Active 18 mg iron- 400 mcg-180 mg tablet 1 tablet PO DAILY ferrous sulfate 325 mg (65 mg iron) tablet 325 mg PO DAILY cholecalciferol (vitamin D3) [Vitamin D3] 25 mcg (1,000 unit) Tablet 1,000 unit PO DAILY calcium carbonate 600 mg calcium (1,500 mg) Tablet 600 mg PO DAILY Discontinued acetaminophen 500 mg Tablet 500 mg PO Q6H PRN (Reason: Pain) No Action cyclobenzaprine 10 mg tablet 10 mg PO TID PRN (Reason: muscle spasm) Qty: 30 0RF Date of admission: 09/11/22 15:56 Primary Care Provider: Felecia Galarza Admitting Provider: Deepika Butt Attending physician on admission: Deepika Butt Condition: Stable
== END 2022-09-13 17:40 | disposition home or self-care (01) | DRG 473 ==
LOC: ANH2MED 16:13
PROVIDERS: Admitting Provider Neurological Surgery; PCP Nurse Practitioner; Visit Provider Neurological Surgery
PROC: 01N10ZZ Release Cervical Nerve, Open Approach (ICD-10-PCS; principal; 2022-09-11 08:30)
DX: M48.02 Spinal stenosis, cervical region (principal); M54.12 Radiculopathy, cervical region; M17.12 Unilateral primary osteoarthritis, left knee; N18.9 Chronic kidney disease, unspecified
CPT/HCPCS: 81001; 97116; 97161; 97165; 97530; 99199; A9270; C1713; C9290; J0330; J0690; J1100; J2250; J2405; J2704; J3010; J3370; J3480; J7120

== ENCOUNTER 2022-10-18 13:45 | Outpatient (CLI) | payer MEDICARE, SELFPAY ==
--- NOTE | ~2022-10-18 | MM_ITS ---
EXAMINATION: MM screening rivera BI w ayaan HISTORY: Screening TECHNIQUE: Craniocaudal and mediolateral oblique 3-D tomosynthesis images were obtained and synthetic 2-D images were generated. CAD analysis was submitted and interpreted. COMPARISON: Comparison to multiple prior studies sequentially, with oldest reviewed study dated 11/2015. BREAST PARENCHYMAL COMPOSITION: Breast composed of scattered areas of fibroglandular density FINDINGS: There is no evidence of suspicious mass, calcification, or architectural distortion to sugg est malignancy in either breast. There has been no suspicious interval change. IMPRESSION: 1. No mammographic evidence of malignancy. 2. Recommend routine screening mammography in one year. BI-RADS Category 1: Negative Reviewed, dictated and finalized at location A.
--- NOTE | ~2022-10-18 | DEXA_ITS ---
Bone Density Report Name: JANESSA GUILLEN Age: 76 Sex: Female Ethnicity: White Date of : 1945 Indication: osteopenia; height loss; hysterectomy; postmenopausal Referring Provider: ALYSSA TOLEDO Study: Bone densitometry was performed. Exam Date: October 18, 2022 Accession number: [id number] Bone Density: Region BMD T-score Z-score Classification AP Spine(L1-L4) 0.798 -2.3 0.2 Osteopenia Femoral Neck (Left) 0.571 -2.5 -0.4 Osteoporosis Total Hip (Left) 0.684 -2.1 -0.3 Osteopenia Femoral Neck (Right) 0.589 -2.3 -0.2 Osteopenia Total Hip (Right) 0.680 -2.2 -0.3 Osteopenia Total Hip Mean 0.682 -2.2 -0.3 Osteopenia World Health Organization criteria for BMD impression classify patients as: Normal (T-score at or above -1.0), Osteopenia (T-score between -1.0 and -2.5), or Osteoporosis (T-score at or below -2.5). 10-year Fracture Risk: FRAX not reported because: Some T-score for Spine Total or Hip Total or Femoral Neck at or below -2.5 Previous Exams: Region Exam Age BMD T-score BMD Change BMD Change Date g/cm2 vs Baseline vs Previous AP Spine (L1-L4) 10/18/2022 76 0.798 -2.3 -0.017 (-2.0%) -0.017 (-2.0%) 04/11/2020 74 0.814 -2.1 Total Hip(Left) 10/18/2022 76 0.684 -2.1 -0.089 (-11.6% -0.089 (-11.6% 04/11/2020 74 0.773 -1.4 Total Hip(Right) 10/18/2022 76 0.680 -2.2 -0.087 (-11.4% -0.087 (-11.4% 04/11/2020 74 0.767 -1.4 *Denotes significance at 95% confidence level, LSC for AP Spine = 0.022 g/cm2, LSC for Total Hip = 0.027 g/cm2 # Denotes dissimilar scan types or analysis methods Clinical Information Provided by Patient: Has used the following medications: Vitamin D, Calcium Has the following medical conditions: Hysterectomy Patient maximum height was 62 Menopause Age: 39 Drinks caffeinated beverages Onset of menses at age 13 Number of children 3 Impression: The patient has osteoporosis, based on the Left Femoral Neck T-score. No significant bone loss was observed. Discussion: INCREASED RISK OF FRACTURE. BONE DENSITY IS UNDESIRABLY LOW AT ONE OR MORE SKELETAL SITES, CONSISTENT WITH POSTMENOPAUSAL OSTEOPOROSIS. This patient's lowest T-score meets the World Health Organization's (WHO) criteria for osteoporosis at one or more sites (T-score -2.5 or below). In untreated patients, the risk of osteoporotic fracture increases approximately two-fold for each 1.0 SD decrease in T-score. Low bone density is not the only risk
== END 2022-10-18 13:46 | disposition home or self-care (01) ==
PROVIDERS: PCP Nurse Practitioner; Visit Provider Nurse Practitioner
DX: Z12.31 Encounter for screening mammogram for malignant neoplasm of breast (principal); Z78.0 Asymptomatic menopausal state; M85.88 Other specified disorders of bone density and structure, other site; M81.0 Age-related osteoporosis without current pathological fracture; M85.852 Other specified disorders of bone density and structure, left thigh; M85.851 Other specified disorders of bone density and structure, right thigh
CPT/HCPCS: 77063; 77067; 77080

== ENCOUNTER 2023-01-03 12:40 | Outpatient (CLI) | payer MEDICARE, SELFPAY ==
--- NOTE | ~2023-01-03 | XR_ITS ---
[id number] 01/03/2023 13:05 Indication: Arthrodesis status. Procedure: 3 views cervical spine Comparison: 02/16/2019 Findings: There is fusion at C6-7. 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 Hardw are appears to be intact. No prevertebral soft tissue swelling. There is disc narrowing at C5-6. Wilton toid process is normal. Lung apices are normal. No fracture or traumatic malalignment. Impression: 1: Posterior spinal fusion at C3-6. 2: Stable appearance to fusion at C6-7. 3: Mild-moderate cervical spondylosis. Reviewed, dictated and finalized at location L. Impression: 1: Posterior spinal fusion at C3-6. 2: Stable appearance to fusion at C6-7. 3: Mild-moderate cervical spondylosis.
== END 2023-01-03 12:41 | disposition home or self-care (01) ==
LOC: ANHIMG 12:44
PROVIDERS: PCP Internal Medicine; Visit Provider Neurological Surgery
DX: Z98.1 Arthrodesis status (principal); M47.892 Other spondylosis, cervical region
CPT/HCPCS: 72040

== ENCOUNTER 2023-02-26 09:48 | Outpatient (CLI) | payer MEDICARE, SELFPAY ==
[2023-02-26 10:37] LABS: Basophils Absolute Auto 0.1 K/mm3 (0.0-0.1); Basophils Percent Auto 0.7 % (0.2-1.2); Eosinophils Absolute Auto 0.4 K/mm3 (0-0.3); Eosinophils Percent Auto 4.1 % (0-4.4); Hematocrit 43.2 % (37.0-47.0); Immature Granulocyte Absolute 0.14 K/mm3 (0.00-0.031); Immature Granulocyte Percent A 1.5 % (0-0.5); Lymphocytes Percent Auto 31.2 % (18.3-44.2); Mean Corpuscular HGB Conc 32.4 g/dl (32-36); Mean Corpuscular Hemoglobin 29.4 pg (26-34); Mean Corpuscular Volume 90.6 fl (80-100); Mean Platelet Volume 9.7 fl (7.4-10.4); Monocytes Absolute Auto 0.8 K/mm3 (0.1-0.6); Monocytes Percent Auto 7.8 % (2.6-8.5); Neutrophils Absolute Auto 5.3 K/mm3 (1.3-6.7); Neutrophils Percent Auto 54.7 % (45.5-73.1); Platelet Count Result 352 k/mm3 (150-375); Red Blood Count 4.77 M/mm3 (4.2-5.4); Red Cell Distribution Width 12.7 % (11.5-14.5); White Blood Count 9.6 K/mm3 (4.5-10.0)
[2023-02-26 10:48] LABS: Alanine Aminotransferase 18 U/L (6-35); Albumin Level 4.5 g/dL (3.5-5.1); Alkaline Phosphatase 79 U/L (38-126); Anion Gap 7 mmol/L (8-16); Aspartate Amino Transferase 27 U/L (14-36); Bilirubin,Total 0.4 mg/dL (0.2-1.3); Blood Urea Nitrogen 25 mg/dL (7-17); Calcium 9.4 mg/dL (8.4-10.2); Carbon Dioxide 27 mmol/L (22-30); Chloride 104 mmol/L (98-107); Cholesterol 217 mg/dL (0-200); Estimated Glomerular Filt Rate 54; Glucose 96 mg/dL (65-110); HDL Direct 67 mg/dL; Potassium 4.8 mmol/L (3.4-5.0); Sodium 138 mmol/L (137-145); Triglycerides 106 mg/dL (<150)
[2023-02-26 10:59] LABS: LDL Cholesterol Direct 109 mg/dL
[2023-02-26 11:17] LABS: Vitamin D 25 Hydroxy 44.7 ng/mL
== END 2023-02-26 09:49 | disposition home or self-care (01) ==
LOC: ANHLAB 09:50
PROVIDERS: PCP Internal Medicine; Visit Provider Nurse Practitioner
DX: E78.5 Hyperlipidemia, unspecified (principal); N18.9 Chronic kidney disease, unspecified; Z13.29 Encounter for screening for other suspected endocrine disorder; E55.9 Vitamin D deficiency, unspecified
CPT/HCPCS: 36415; 80053; 80061; 82306; 85025

== ENCOUNTER 2023-04-05 10:06 | Outpatient (CLI) | payer MEDICARE, SELFPAY ==
--- NOTE | ~2023-04-05 | XR_ITS ---
EXAMINATION:[id number] DATE: 04/05/2023 10:22 INDICATION: Arthrodesis status TECHNIQUE: AP, lateral, and odontoid views of the cervical spine are provided. COMPARISON: 01/03/2023 FINDINGS: Bone alignment is normal. There are changes of posterior fusion and laminectomy from C3 thr ough C6. There is interbody fusion anteriorly at C6-7. The odontoid process is intact. No fracture is identified. The vertebral body heights are maintained. There is severe loss of intervertebral disc s pace height at C5-6. Prevertebral soft tissues are normal. IMPRESSION: 1. Stable surgical changes and severe spondylosis of the cervical spine at C5-6 without acute finding s. Reviewed, dictated and finalized at location B. IMPRESSION: 1. Stable surgical changes and severe spondylosis of the cervical spine at C5-6 without acute findings.
== END 2023-04-05 10:07 | disposition home or self-care (01) ==
LOC: ANHIMG 10:08
PROVIDERS: PCP Internal Medicine; Visit Provider Neurological Surgery
DX: Z98.1 Arthrodesis status (principal)
CPT/HCPCS: 72040

== ENCOUNTER 2023-09-05 11:30 | Outpatient (CLI) | payer MEDICARE, SELFPAY ==
[2023-09-05 12:02] LABS: Basophils Absolute Auto 0.1 K/mm3 (0.0-0.1); Basophils Percent Auto 0.9 % (0.2-1.2); Eosinophils Absolute Auto 0.3 K/mm3 (0-0.3); Eosinophils Percent Auto 3.4 % (0-4.4); Hematocrit 43.9 % (37.0-47.0); Hemoglobin 13.7 g/dL (12.0-15.0); Immature Granulocyte Absolute 0.04 K/mm3 (0.00-0.031); Immature Granulocyte Percent A 0.4 % (0-0.5); Lymphocytes Absolute Auto 2.88 K/mm3 (0.9-3.2); Lymphocytes Percent Auto 32.2 % (18.3-44.2); Mean Corpuscular HGB Conc 31.2 g/dl (32-36); Mean Corpuscular Hemoglobin 28.7 pg (26-34); Mean Platelet Volume 9.5 fl (7.4-10.4); Monocytes Absolute Auto 0.6 K/mm3 (0.1-0.6); Neutrophils Percent Auto 56.1 % (45.5-73.1); Platelet Count Result 351 k/mm3 (150-375); Red Blood Count 4.77 M/mm3 (4.2-5.4); Red Cell Distribution Width 13.2 % (11.5-14.5)
[2023-09-05 12:13] LABS: Alanine Aminotransferase 15 U/L (6-35); Albumin Level 4.3 g/dL (3.5-5.1); Alkaline Phosphatase 62 U/L (38-126); Anion Gap 4 mmol/L (8-16); Aspartate Amino Transferase 27 U/L (14-36); Bilirubin,Total 0.6 mg/dL (0.2-1.3); Blood Urea Nitrogen 20 mg/dL (7-17); Calcium 9.7 mg/dL (8.4-10.2); Carbon Dioxide 28 mmol/L (22-30); Chloride 106 mmol/L (98-107); Estimated Glomerular Filt Rate > 60; Glucose 108 mg/dL (65-110); Potassium 5.6 mmol/L (3.4-5.0); Sodium 138 mmol/L (137-145)
[2023-09-05 12:36] LABS: Iron 95 ug/dL (37-170)
[2023-09-05 12:44] LABS: Thyroid Stimulating Hormone 0.924 uIU/mL (0.465-4.680)
[2023-09-05 12:48] LABS: Percent Iron Saturation 40 % (20-50)
== END 2023-09-05 11:31 | disposition home or self-care (01) ==
LOC: ANHLAB 11:31
PROVIDERS: PCP Internal Medicine; Visit Provider Nurse Practitioner
DX: D50.9 Iron deficiency anemia, unspecified (principal); E55.9 Vitamin D deficiency, unspecified; E78.5 Hyperlipidemia, unspecified; N18.9 Chronic kidney disease, unspecified; R23.2 Flushing
CPT/HCPCS: 36415; 80053; 82306; 82728; 83540; 83550; 84443; 85025

== ENCOUNTER 2024-02-20 15:03 | Outpatient (CLI) | payer MEDICARE, SELFPAY ==
--- NOTE | ~2024-02-20 | MM_ITS ---
EXAMINATION: MM screening rivera BI w ayaan HISTORY: Screening TECHNIQUE: Craniocaudal and mediolateral oblique 3-D tomosynthesis images were obtained and synthetic 2-D images were generated. CAD analysis was submitted and interpreted. COMPARISON: Comparison to multiple prior studies sequentially, with oldest reviewed study dated 03/05. BREAST PARENCHYMAL COMPOSITION: There are scattered areas of fibroglandular density. FINDINGS: There is no evidence of suspicious mass, calcification, or architectural distortion to sugg est malignancy in either breast. There has been no suspicious interval change. IMPRESSION: 1. No mammographic evidence of malignancy. 2. Recommend routine screening mammography in one year. BI-RADS Category 1: Negative Reviewed, dictated and finalized at location B.
== END 2024-02-20 15:04 | disposition home or self-care (01) ==
LOC: ANHIMG 15:05
PROVIDERS: PCP Internal Medicine; Visit Provider Nurse Practitioner
DX: Z12.31 Encounter for screening mammogram for malignant neoplasm of breast (principal); Z78.0 Asymptomatic menopausal state
CPT/HCPCS: 77063; 77067

== ENCOUNTER 2024-09-17 13:29 | Outpatient (CLI) | payer MEDICARE, SELFPAY ==
--- OUTSIDE RECORDS SUMMARY | 2024-09-17 14:50 | XMS_ITS | Clinical Summary ---
Author Organization [facility] [id number] [facility] Address [address] [place] [address] Care Team Providers Care Osteopathic Physician Name Role Phone Chanel Yung MD Primary Care Provi parrish Allergies No known active allergies Medications multivit,calc,m ins/iron/folic (ONE-A-DAY WOMENS FORMULA ORAL) Take by mouth. Active VALERIAN ORALIndications :two tabets once daily Take 515 mg by mouth. Active ibuprofen (MOTRIN) 200 mg tablet Take 200 mg by mouth every 6 hours as needed for Pain, Mild (4 tablets PRN). Active Active Problems Problem Noted Date Diagnosed Date Cervical spondylosis without myelopathy 03/17/20 19 S/P cervical spinal fusion 03/17/2019 Family History Medical History Relation Name Comments Lung Cancer Brother Heart Attack Father Other Father lead poisoning Alzheimer's Disease Mother Heart Surgery Mother Macular Degen Mother Dementia Sister Relation Name Status Comments Brother Father Mother Sister Alive Social History Tobacco Use Types Packs/Day Years Used Date Smoking Tobacco: Never Smokeless Tobacco: Never Alcohol Use Standard Drinks/Week Comments Yes 1 (1 standard drink = 0.6 oz pur e alcohol) Comments Unknown Sex and Gender Information Value Date Recorded Sex Assigned at Not on file Legal Sex Female 3:38 PM CDT Gender Identity Not on file Sexual Orientation Not on file Last Filed Vital Signs Vital Sign Reading Time Taken Comments Blood Pressure - - Pulse - - Temperature - - Respiratory Rate - - Oxygen Saturation - - Inhaled Oxygen Concentration - - Weight 55.3 kg (122 lb) 03/17/2019 11:30 AM CDT Height 157.5 cm (5' 2 ) 03/17/2019 11:30 AM CDT Body Mass Index 22.31 03/17/2019 11:30 AM CDT Plan of Treatment Health Maintenance Due Date Last Done Comments DTAP/TDAP/TD VACCINES (1 - Tdap) 1965 PNEUMOCOCCAL VACCINE 50+ YEARS (1 of 1 - PCV) 11/23/18 97 ZOSTER VACCINE (1 of 2) 1996 OSTEOPOROSIS SCREENING 11/24/2011 RSV VACCINE (60+ or ) (1 - 1-dose 75+ series) 2021 INFLUENZA VACCINE (#1) 2024 Insurance 3 [place] [id number] Care Teams Osteopathic Physician Relationship Specialty Start Date End Date Chanel Yung MD [address] [place] [address] PCP - General Family Practice 03/05/19
[2024-09-17 18:58] LABS: Basophils Absolute Auto 0.1 K/mm3 (0.0-0.1); Basophils Percent Auto 0.8 % (0.2-1.2); Eosinophils Absolute Auto 0.3 K/mm3 (0-0.3); Eosinophils Percent Auto 2.9 % (0-4.4); Hematocrit 41.9 % (37.0-47.0); Hemoglobin 13.4 g/dL (12.0-15.0); Immature Granulocyte Absolute 0.03 K/mm3 (0.00-0.031); Immature Granulocyte Percent A 0.3 % (0-0.5); Lymphocytes Absolute Auto 2.93 K/mm3 (0.9-3.2); Lymphocytes Percent Auto 29.5 % (18.3-44.2); Mean Corpuscular Hemoglobin 29.3 pg (26-34); Mean Corpuscular Volume 91.5 fl (80-100); Mean Platelet Volume 9.9 fl (7.4-10.4); Monocytes Absolute Auto 0.7 K/mm3 (0.1-0.6); Monocytes Percent Auto 6.7 % (2.6-8.5); Neutrophils Absolute Auto 5.9 K/mm3 (1.3-6.7); Neutrophils Percent Auto 59.8 % (45.5-73.1); Platelet Count Result 382 k/mm3 (150-375); Red Blood Count 4.58 M/mm3 (4.2-5.4); Red Cell Distribution Width 13.7 % (11.5-14.5); White Blood Count 9.9 K/mm3 (4.5-10.0)
[2024-09-17 19:17] LABS: Alanine Aminotransferase 17 U/L (6-35); Albumin Level 4.4 g/dL (3.5-5.1); Alkaline Phosphatase 68 U/L (38-126); Anion Gap 10 mmol/L (4-12); Aspartate Amino Transferase 48 U/L (14-36); Bilirubin,Total 0.4 mg/dL (0.2-1.3); Blood Urea Nitrogen 14 mg/dL (7-17); Calcium 9.4 mg/dL (8.4-10.2); Carbon Dioxide 26 mmol/L (22-30); Chloride 103 mmol/L (98-107); Cholesterol 222 mg/dL (0-200); Estimated Glomerular Filt Rate 53; Glucose 118 mg/dL (65-110); HDL Direct 73 mg/dL; Sodium 139 mmol/L (137-145); Triglycerides 250 mg/dL (<150)
[2024-09-17 19:30] LABS: LDL Cholesterol Direct 95 mg/dL
[2024-09-17 20:07] LABS: Vitamin D 25 Hydroxy 53.6 ng/mL
[2024-09-18 12:28] LABS: Rubeola Measles IgG >300.00 AU/mL
== END 2024-09-17 13:30 | disposition home or self-care (01) ==
LOC: ANHGOSHLAB 13:30
PROVIDERS: PCP Internal Medicine; Visit Provider Nurse Practitioner
DX: E55.9 Vitamin D deficiency, unspecified (principal); Z13.29 Encounter for screening for other suspected endocrine disorder; E78.5 Hyperlipidemia, unspecified; N18.31 Chronic kidney disease, stage 3a; Z01.84 Encounter for antibody response examination
CPT/HCPCS: 36415; 80053; 80061; 82306; 85025; 86735; 86765

== ENCOUNTER 2024-10-20 14:22 | Outpatient (CLI) | payer MEDICARE, SELFPAY ==
--- NOTE | ~2024-10-20 | DEXA_ITS ---
Bone Density Report Name: JANESSA GUILLEN Age: 78 Sex: Female Ethnicity: White Date of : 1945 Indication: osteopenia; monitoring treatment; height loss; hysterectomy; Referring Provider: ALYSSA TOLEDO Study: Bone densitometry was performed. Exam Date: October 20, 2024 Accession number: [id number] Bone Density: Region BMD T-score Z-score Classification AP Spine(L1-L4) 0.829 -2.0 0.6 Osteopenia Femoral Neck (Left) 0.583 -2.4 -0.2 Osteopenia Total Hip (Left) 0.749 -1.6 0.4 Osteopenia Femoral Neck (Right) 0.627 -2.0 0.2 Osteopenia Total Hip (Right) 0.687 -2.1 -0.1 Osteopenia Total Hip Mean 0.718 -1.9 0.2 Osteopenia World Health Organization criteria for BMD impression classify patients as: Normal (T-score at or above -1.0), Osteopenia (T-score between -1.0 and -2.5), or Osteoporosis (T-score at or below -2.5). 10-year Fracture Risk: FRAX not reported because: Treated for osteoporosis Previous Exams: Region Exam Age BMD T-score BMD Change BMD Change Date g/cm2 vs Baseline vs Previous AP Spine (L1-L4) 10/20/2024 78 0.829 -2.0 0.014 (1.8%)# 0.031 (3.9%)* 10/18/2022 76 0.798 -2.3 -0.017 (-2.0%) -0.017 (-2.0%) 04/11/2020 74 0.814 -2.1 Total Hip(Left) 10/20/2024 78 0.749 -1.6 -0.024 (-3.2%) 0.065 (9.5%)* 10/18/2022 76 0.684 -2.1 -0.089 (-11.6% -0.089 (-11.6% 04/11/2020 74 0.773 -1.4 Total Hip(Right) 10/20/2024 78 0.687 -2.1 -0.080 (-10.4% 0.008 (1.1%) 10/18/2022 76 0.680 -2.2 -0.087 (-11.4% -0.087 (-11.4% 04/11/2020 74 0.767 -1.4 *Denotes significance at 95% confidence level, LSC for AP Spine = 0.022 g/cm2, LSC for Total Hip = 0.027 g/cm2 # Denotes dissimilar scan types or analysis methods Clinical Information Provided by Patient: Is being treated for osteoporosis Has used the following medications: Fosamax (i.e. alendronate), Vitamin D, Calcium Has the following medical conditions: Hysterectomy Patient maximum height was 62 Menopause Age: 39 No regular weight bearing exercise Drinks caffeinated beverages Onset of menses at age 13 Number of children 3 Impression: The patient has low bone mass, based on the Left Femoral Neck T-score. No significant bone loss was observed. Discussion: PATIENT UNDER TREATMENT WITH NO SIGNIFICANT BMD LOSS SINCE LAST EXAM. In an untreated patient, BMD typically declines with age. A lack of decline or gain is usually a sign that treatment is efficacious and fracture risk is reduced. It is important to ask patients whether they are taking their medications and to encourage continued and appropriate compliance with their osteoporosis therapies to reduce fracture risk. It is also important to review their risk factors and encourage appropriate calcium and vitamin D intakes, exercise, fall prevention and other lifestyle measures. Follow-Up: Consider a repeat BMD and Vertebral Fracture Assessment (VFA) exam in 2 years or sooner if medically necessary, to reassess this patient's status. Reported by: CAESAR on 10/20/2024 3:00:00 PM. Reviewed, dictated and finalized at location ASonal DEMARCO
--- OUTSIDE RECORDS SUMMARY | 2024-10-20 15:59 | XMS_ITS | Clinical Summary ---
Author Organization [facility] [address] [facility] Address [address] [place] [address] Care Team Providers Care Pinion Staker Name Role Phone Chanel Yung MD Primary [...] 2021 INFLUENZA VACCINE (#1) 2024 Insurance 3 [place] [id number] Care Teams Pinion Staker Relationship Specialty Start Date End Date Chanel Yung MD [address] [place] [address] PCP - General Family Practice 03/05/19
== END 2024-10-20 14:23 | disposition home or self-care (01) ==
LOC: ANHIMG 14:23
PROVIDERS: PCP Internal Medicine; Visit Provider Nurse Practitioner
DX: M85.89 Other specified disorders of bone density and structure, multiple sites (principal); Z78.0 Asymptomatic menopausal state; Z13.29 Encounter for screening for other suspected endocrine disorder
CPT/HCPCS: 77080